=== PATIENT | male | born 1995 | race American Indian/Alaskan Native ===

== ENCOUNTER 2020-06-20 09:00 | Emergency (ER) | payer SELFPAY ==
--- NOTE | 2020-06-20 09:41 | Emergency Department Report ---
ED Psych HPI - General Stated Complaint: PSYCH/BIPOLAR Time Seen by Provider: 06/20/20 09:31 Source: patient Mode of arrival: Ambulatory Limitations: No Limitations - History of Present Illness Initial Comments: CC: "I just wanted to stop being paranoid." HPI: This is a 25 yo male with hx of bipolar disorder who presents with insomnia, paranoia and racing thoughts. Patient called EMS. He denies SI, HI, hallucinations. He states [place] is not helping. He has used Zyprexa and Adderall in the past. MD Complaint: other (paranoia, insomnia) -: Gradual, days(s) (2 days) Associated Psychiatric Symptoms: racing thoughts History of same: Yes Quality: constant Improves With: none Worsens With: none Context: not taking psychiatric Associated Symptoms: denies other symptoms Treatments Prior to Arrival: other (EMS transport) - Related Data Allergies Allergy/AdvReac Type Severity Reaction Status Date / Time Penicillins Allergy Unknown Verified 06/20/20 10:26 ED Review of Systems ROS: Stated complaint: PSYCH/BIPOLAR Other details as noted in HPI Comment: All other systems reviewed and negative Constitutional: denies: fever, malaise Respiratory: denies: cough, shortness of breath Cardiovascular: denies: chest pain Gastrointestinal: denies: abdominal pain, nausea, vomiting Psychiatric: depression. denies: auditory hallucinations, visual hallucinations, homicidal thoughts, suicidal thoughts ED Past Medical Hx - Past Medical History Previous Medical History?: Yes Hx Psychiatric Treatment: Yes (bipolar disorder) - Surgical History Past Surgical History?: No - Social History Smoking Status: Current Every Day Smoker Substance Use Type: Alcohol, Marijuana ED Physical Exam - General Limitations: No Limitations General appearance: alert, in no apparent distress, other (poor hygiene, dirty soiled clothing) - Head Head exam: Present: atraumatic, normocephalic - Eye Eye exam: Present: normal appearance - ENT ENT exam: Present: mucous membranes moist - Neck Neck exam: Present: normal inspection, full ROM - Respiratory Respiratory exam: Present: normal lung sounds bilaterally. Absent: respiratory distress, wheezes, rales, rhonchi - Cardiovascular Cardiovascular Exam: Present: regular rate, normal rhythm, normal heart sounds. Absent: systolic murmur, diastolic murmur, rubs, gallop - GI/Abdominal GI/Abdominal exam: Present: soft, normal bowel sounds. Absent: distended, tenderness, guarding, rebound - Rectal Rectal exam: Present: deferred - Extremities Exam Extremities exam: Present: normal inspection - Neurological Exam Neurological exam: Present: alert, oriented X3 - Psychiatric Psychiatric exam: Present: depressed, flat affect, other (Circular speech poor insight disorganized thought pattern) - Skin Skin exam: Present: warm, dry, intact, normal color. Absent: rash ED Course Vital Signs 06/20/20 10:18 Temperature 98.9 F Pulse Rate 63 Respiratory 18 Rate Blood Pressure 126/82 [Left] O2 Sat by Pulse 99 Oximetry ED Medical Decision Making - Lab Data Result diagrams: 06/20/20 09:42 06/20/20 09:42 - Medical Decision Making This is a 25-year-old male with history of bipolar disorder acute psychosis with auditory hallucinations and paranoia. Mental health jewel oliving machine operator and I agreed that patient requires involuntary hold. With extensive assessment, mental health jewel oliving machine operator informing the patient admits to auditory hallucinations. With patie nt's poor insight, I am greatly concerned for his safety. 1013 form has been completed. I have reviewed labs obtained. Patient is medically clear for psychiatric care. He required chemical restraint for increasing agitation and potential elopement. Critical care attestation.: If time is entered above; I have spent that time in minutes in the direct care of this critically ill patient, excluding procedure time. ED Disposition Clinical Impression: Acute psychosis, Bipolar disorder Disposition: [id number] ANOTHER TYPE HLTHCARE Is pt being admited?: No Does the pt Need Aspirin: No Condition: Stable
[2020-06-20 09:58] LABS: Basophils % (Auto) 0.4 % (0.0-1.8); Hemoglobin 15.3 gm/dl (11.8-15.2); Lymphocytes # (Auto) 0.9 K/mm3 (1.2-5.4); Lymphocytes % (Auto) 11.1 % (13.4-35.0); Mean Corpuscular HGB Conc 34 % (32-34); Mean Corpuscular Volume 97 fl (84-94); Monocytes # (Auto) 0.6 K/mm3 (0.0-0.8); Monocytes % (Auto) 7.7 % (0.0-7.3); Platelet Count 216 K/mm3 (140-440); Red Blood Count 4.65 M/mm3 (3.65-5.03); Red Cell Distribution Width 12.2 % (13.2-15.2)
[2020-06-20 10:33] LABS: Alanine Aminotransferase 12 units/L (7-56); Albumin 4.7 g/dL (3.9-5); BUN/Creatinine Ratio 10; Blood Urea Nitrogen 10 mg/dL (9-20); Calcium 9.5 mg/dL (8.4-10.2); Hemolysis Index 8
[2020-06-20 11:25] LABS: Bilirubin,Urine NEG (Negative); Blood,Urine NEG (Negative); Color,Urine Yellow (Yellow); Mucus,Urine FEW /HPF; Protein,Urine <15 mg/dL mg/dL (Negative); WBC,Urine < 1.0 /HPF (0.0-6.0)
[2020-06-20 11:32] LABS: Amphetamine Screen,Urine PRESUMPTIVE NEGATIVE; Benzodiazepines Screen,Urine PRESUMPTIVE NEGATIVE; Cannabinoid Screen,Urine PRESUMPTIVE POSITIVE; Cocaine Screen,Urine PRESUMPTIVE NEGATIVE; Methadone Screen,Urine PRESUMPTIVE NEGATIVE; Opiate Screen,Urine PRESUMPTIVE NEGATIVE
[2020-06-20] MEDS ORDERED: ZIPRASIDONE MESYLATE 20 MG VIAL IM ONE (11:49)
[2020-06-20] MEDS ORDERED: WATER FOR INJ Sterile (PF) 10 ML ONE (11:54)
[2020-06-20] MEDS: ZIPRASIDONE MESYLATE 20 MG VIAL IM PRN (21:15)
--- NOTE | 2020-06-21 11:17 | Event Note ---
Date: 06/21/20 S: "I just wanna . " O: Vital signs stable; patient is tearful and disorganized A: Schizoaffective disorder, bipolar disorder P: 1013; awaiting acceptance for inpatient psychiatric placement
[2020-06-21] MEDS ORDERED: WATER FOR INJ Sterile (PF) 10 ML ONE ×2 (13:23→21:16)
[2020-06-21] MEDS: ZIPRASIDONE MESYLATE 20 MG VIAL IM PRN ×2 (13:33→21:25)
[2020-06-21] MEDS: LITHIUM CARBONATE 300 MG CAP PO SCH ×2 (13:34→21:20)
--- NOTE | 2020-06-21 14:43 | Consultation ---
History of Present Illness - Reason for Consult Consult date: 06/21/20 Reason for consult: MHE Requesting physician: KARLA WRIGHT - History of Present Psychiatric Illness Per ED Provider: This is a 25 yo male with hx of bipolar disorder who presents with insomnia, paranoia and racing thoughts. Patient called EMS. He denies SI, HI, hallucinations. He states [place] is not helping. He has used Zyprexa and Adderall in the past. PSYCH HPI Patient is a 25 year old single male seen in isolation. Patient appears very anxious and frightened at same thing, makes slow cognitive responses to questions. pt states there is something wrong with him but unable to describe or put in words. He appears tense, pt states he needs to protect his family but cant be outthere because there is something wrong with him. PAST PSYCHIATRIC HISTORY Diagnoses: bipolar schizophrenia Suicide attempts or Self-harm behavior:n/a Prior psychiatric hospitalizations: n/a Substance Abuse history: n/a Previous psychiatric medications tried: zypreza and lithium Outpatient treatment:n/a PAST MEDICAL HISTORY: n/a Family Psychiatric History: None reported or documented SOCIAL HISTORY Marital Status: single Living Arrangements: n/a Employment Status: emplyed Access to guns/weapons: n/a Education: [employer] History of Abuse: n/a Legal History: n/a REVIEW OF SYSTEMS ROS cannot be reliably obtained from the patient due to his mental state MENTAL STATUS EXAMINATION General Appearance and Behavior: Age appropriate, fair hygiene, wearing appropriate clothes, lying in bed, poor eye contact, cooperative irritable with questioning. Cooperation: Participating, Hostile and Guarded Psychomotor Behavior: unremarkable and within normal limits Mood: I don't know Affect and affective range: flat, preservative Thought Process: Illogical, Blocked, Thought Content: loose Speech: Normal volume, Regular rate and rhythm, Intellectual Functioning: Average Suicidal Ideation: Denies SI Homicidal Ideation: Denies HI Impulse Control: Impaired Insight and Judgment: Limited insight and judgment Memory: Short term memory intact Attention: Divided attention impaired Orientation: Alert, oriented, Assessment and Plan - Psychiatric problem (1) Schizoaffective disorder Current Visit: Yes Status: Acute F25.9 Treatment Plan State patient on Zyprexa and lithium MEDICATIONS: Risks, benefits and alternatives of medications discussed with the patient, questions answered and consent obtained from patient. PSYCHOTHERAPY: Supportive psychotherapy provided MEDICAL: Per primary team DELIRIUM PRECAUTIONS: Please re-orient patient frequently, keep lights on during the day, and minimize benzodiazepines and opiates as these medications could worsen patient's confusion. CAPACITOR ASSEMBLER: DISPOSITION: Do Recommend acute inpatient psychiatric hospitalization at this time. Case discussed with Dr. Padilla who agrees with current disposition LEGAL STATUS: 1013 FOLLOW-UP: Will follow Thank you for the consult. Please contact with any questions and/or concerns. Medications and Allergies Allergies Allergy/AdvReac Type Severity Reaction Status Date / Time Penicillins Allergy Unknown Verified 06/20/20 10:26 Home Medications Medication Instructions Recorded Confirmed Last Taken Type OLANzapine [ZyPREXA] 10 mg PO QHS 06/20/20 06/20/20 Unknown History Active Meds: Active Medications Ziprasidone (Ziprasidone Mesylate 20 Mg Vial) 10 mg IM Q2H PRN PRN Reason: Agitation Last Admin: 06/20/20 21:15 Dose: 10 mg Documented by: Mental Status Exam - Vital signs Last Vital Signs Temp 98.4 F 06/21/20 07:47 Pulse 84 06/21/20 07:47 Resp 20 06/21/20 07:47 BP 126/91 06/21/20 07:47 Pulse Ox 100 06/21/20 07:47 Results Result Diagrams: 06/20/20 09:42 06/20/20 09:42 Abnormal lab results 06/20/20 06/20/20 06/20/20 Range/Units 09:42 09:42 Unknown Total Protein 8.3 H (6.3-8.2) g/dL Urine pH 8.0 H (5.0-7.0) Salicylates < 0.3 L (2.8-20.0) mg/dL All other labs normal. Assessment and Plan - Psychiatric problem (1) Schizoaffective disorder Current Visit: Yes Status: Acute
[2020-06-22] MEDS ORDERED: WATER FOR INJ Sterile (PF) 10 ML ONE ×2 (02:16→07:32)
[2020-06-22] MEDS: ZIPRASIDONE MESYLATE 20 MG VIAL IM PRN (02:44)
[2020-06-22] MEDS ORDERED: ZIPRASIDONE MESYLATE 20 MG VIAL IM ONE ×2 (07:10→19:40)
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
[2020-06-22] MEDS ORDERED: WATER FOR INJ Sterile (PF) 10 ML IM SCH (09:00)
[2020-06-22] MEDS: LITHIUM CARBONATE 300 MG CAP PO SCH ×2 (10:28→22:00)
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
[2020-06-23] MEDS ORDERED: ZIPRASIDONE MESYLATE 20 MG VIAL IM ONE (02:23)
[2020-06-23] MEDS ORDERED: LORazepam 1 MG TAB PO ONE (09:32)
[2020-06-23] MEDS: LITHIUM CARBONATE 300 MG CAP PO SCH (09:41)
[2020-06-23 19:58] VITALS: BP 125/70
== END 2020-06-23 20:50 | disposition other institution (70) ==
LOC: EEVIPCON 09:00 → ED 09:00
DX: F23 Brief psychotic disorder (principal); F31.9 Bipolar disorder, unspecified; F17.200 Nicotine dependence, unspecified, uncomplicated; F12.90 Cannabis use, unspecified, uncomplicated; Z88.0 Allergy status to penicillin; Z20.822 Contact with and (suspected) exposure to COVID-19
CPT/HCPCS: 36415; 80053; 80178; 80307; 81001; 85025; 96372; 99285; J3486; U0003; 80320; G0480